=== PATIENT | male | born 1965 | race Caucasian/White ===

== ENCOUNTER 2025-05-07 19:10 | Inpatient (IN) | payer SELFPAY ==
[~2025-05-07] VITALS: Ht 167.6 cm; Wt 103.4 kg
[2025-05-07 19:30] VITALS: O2SAT 99
[2025-05-07] MEDS ORDERED: ACETAMINOPHEN 325MG TABLET PO ONE (19:45)
[2025-05-07] MEDS: MORPHINE SULFATE 4 MG/ML INJ (FOR IV/IM USE) IV ONE (20:15)
[2025-05-07 20:51] LABS: BASOPHILS % 0.4 % (0.0-2.0); EOSINOPHILS % 0.4 % (0.0-5.0); HEMATOCRIT. 44.4 % (42.0-52.0); HEMOGLOBIN. 15.1 g/dL (14.0-18.0); LYMPHOCYTES % 10.9 % (20.0-50.0); MEAN PLATELET VOLUME 7.1 fl (7.4-10.4); MONOCYTES % 4.1 % (2.0-8.0); NEUTROPHILS % 84.2 % (40.0-76.0); PLATELET 323 x1000/uL (130-400); RED BLOOD CELL COUNT 5.04 mill/uL (4.7-6.1); RED CELL DISTRIBUTION WIDTH 13.3 % (11.6-14.6)
[2025-05-07 20:59] LABS: CREATININE 0.8 mg/dL (0.6-1.3); UREA NITROGEN BLOOD 13 mg/dL (9-23)
[2025-05-07] MEDS: CEFAZOLIN 1000MG PREMIX 50 ML IV ONE (21:31)
[2025-05-07] MEDS: TETANUS, DIPHTHERIA, PERTUSSIS VAC/PF 0.5ML (>10YR OLD) IM ONE (21:32)
[2025-05-07] MEDS: ACETAMINOPHEN 500MG TABLET PO NR (21:41)
[2025-05-07 23:45] VITALS: BP 120/72; PULSE 120; RESP 18; TEMP 36.9184
[2025-05-08] VITALS: BP 120/72; PULSE 120; RESP 18; TEMP 36.9; O2SAT 96
[2025-05-08] MEDS ORDERED: DEXTROSE 50% WATER 50ML SYRINGE IV PRN (00:15)
[2025-05-08] MEDS ORDERED: IPRATROPIUM/ALBUTEROL 0.5-3(2.5)MG/3ML NEB HHN PRN (00:15)
[2025-05-08] MEDS ORDERED: ONDANSETRON HCL 4MG/2ML INJ IV PRN (00:15)
[2025-05-08] MEDS ORDERED: MAGNESIUM/ALUMINUM HYDROXIDE/SIMETHICONE 30ML UDC PO PRN (00:15)
[2025-05-08] MEDS ORDERED: KETOROLAC 15MG/ML VIAL IV PRN (00:15)
[2025-05-08] MEDS ORDERED: DOCUSATE SODIUM 100MG CAPSULE PO PRN (00:15)
[2025-05-08] MEDS ORDERED: ACETAMINOPHEN 325MG TABLET PO PRN (00:15)
[2025-05-08] MEDS ORDERED: GUAIFENESIN 200MG/10ML SUGAR FREE UDC PO PRN (00:15)
[2025-05-08] MEDS ORDERED: NALOXONE HCL 0.4MG/ML VIAL IV PRN (00:45)
[2025-05-08] MEDS: LOSARTAN 50 MG TABLET PO SCH (00:47)
[2025-05-08] MEDS: DEXT 5%/0.45% NACL 1000ML 1,000 ML IV SCH (00:47)
[2025-05-08] MEDS: MORPHINE SULFATE 4 MG/ML INJ (FOR IV/IM USE) IV PRN (01:47)
[2025-05-08 03:32] LABS: TROPONIN I HIGH SENSITIVITY 4 ng/L (3.0-53)
[2025-05-08 08:00] VITALS: BP 150/105; PULSE 87; RESP 20; TEMP 36.9; O2SAT 99
[2025-05-08 08:17] LABS: *AMPHETAMINES SCREEN URINE NEGATIVE (NEGATIVE); *BARBITURATES SCREEN URINE NEGATIVE (NEGATIVE); *BENZODIAZEPINES SCREEN URINE NEGATIVE (NEGATIVE); *COCAINE SCREEN URINE NEGATIVE (NEGATIVE); CANNABINOID URINE SCREEN NEGATIVE (NEGATIVE); ECSTASY MDMA SCREEN URINE NEGATIVE (NEGATIVE); METHADONE URINE SCREEN NEGATIVE (NEGATIVE); OPIATES URINE SCREEN PRESUMPTIVE POSITIVE (NEGATIVE); PHENCYCLIDINE URINE SCREEN NEGATIVE (NEGATIVE)
[2025-05-08] MEDS: FAMOTIDINE 20MG/2ML VIAL IV SCH (09:14)
[2025-05-08 10:12] LABS: INR 1.0
[2025-05-08 12:00] VITALS: BP 165/108; PULSE 95; RESP 20; TEMP 36.8; O2SAT 99
[2025-05-08 13:02] LABS: HEPATITIS C AB NON REACTIVE (Neg) (Negative)
[2025-05-08] MEDS ORDERED: LOSA50TA41 PO (14:37)
[2025-05-08] MEDS ORDERED: IBUP-2028 MT (14:37)
[2025-05-08] MEDS: CLONIDINE 0.1MG TABLET PO PRN (15:14)
[2025-05-08 15:57] VITALS: BP 131/101; PULSE 95; RESP 20; TEMP 98.2
[2025-05-08 16:00] VITALS: BP 155/98; PULSE 90; RESP 19; TEMP 36.8; O2SAT 99
== END 2025-05-08 16:33 | disposition home or self-care (01) | DRG 342 ==
LOC: ER 19:21 → 7EST 20:40 → EDBEDREQTM 21:12 → EDBEDREQ 21:12 → ENRESERV 21:24
PROVIDERS: ADMIT Internal Medicine; ATTEND Internal Medicine
DX: S62.633A Displaced fracture of distal phalanx of left middle finger, initial encounter for closed fracture (principal); D72.829 Elevated white blood cell count, unspecified; E66.9 Obesity, unspecified; I10 Essential (primary) hypertension; S60.212A Contusion of left wrist, initial encounter; S61.217A Laceration without foreign body of left little finger without damage to nail, initial encounter; S62.635A Displaced fracture of distal phalanx of left ring finger, initial encounter for closed fracture; R00.0 Tachycardia, unspecified; X58.XXXA Exposure to other specified factors, initial encounter; Y92.89 Other specified places as the place of occurrence of the external cause; Z68.36 Body mass index [BMI] 36.0-36.9, adult; Z89.022 Acquired absence of left finger(s); Y99.0 Civilian activity done for income or pay; Z79.899 Other long term (current) drug therapy
CPT/HCPCS: 36415; 73130; 80048; 80305; 82550; 82962; 83036; 84484; 85025; 86705; 87340; 90715; 96374; 99285; A4606; A6449; J0690; J1308; J2270